=== PATIENT | female | born 1975 | race Caucasian/White ===

== ENCOUNTER → 2017-12-16 | Outpatient (CLI) | payer OTHER, BC ==
[~2017-12-16] MED LIST: CITA20 PO; DIPH50 PO; PRED5 PO
== END ==
LOC: LAB SHORT 07:44 → PLD 07:44
DX: D48.5 Neoplasm of uncertain behavior of skin (principal)
CPT/HCPCS: 88305

== ENCOUNTER → 2018-12-17 | Outpatient (CLI) | payer OTHER, BC | END | disposition home or self-care (01) | LOC: LAB SHORT 08:09 → OLS 08:09 | DX: D48.5 Neoplasm of uncertain behavior of skin (principal) | CPT/HCPCS: 88305 ==

== ENCOUNTER 2021-08-03 08:06 | Day surgery (SDC) | payer OTHER, BC ==
[2021-08-02 12:49] LABS: Anion Gap 5 mmol/L (6-16); Blood Urea Nitrogen 18 mg/dL (8-24); Bun/Creatinine Ratio 22.6 (12.0-20.0); CO2, Blood 28 mmol/L (21-32); Chloride, Blood 108 mmol/L (98-108); Glomerular Filtration Rate >60 (60-); Glucose, Blood 92 mg/dL (70-99); Potassium, Blood 4.4 mmol/L (3.5-5.5); Sodium, Blood 141 mmol/L (136-145)
[~2021-08-03] VITALS: Ht 167.6 cm; Wt 103.2 kg
[2021-08-03] MEDS ORDERED: METO25ER (08:53)
[2021-08-03] MEDS ORDERED: HYDCHL12.5 (08:54)
--- NOTE | 2021-08-03 10:26 | NUR ---
08/03/21 1026 Teresa Don FLUID DEFICIT OF <200 CC. DRS NOTIFIED.
--- NOTE | 2021-08-03 10:50 | NUR ---
08/03/21 1050 KIRIT GERMAIN PT IN CHAIR EATING COOKIES DRINKING WATER, DENIES ANY PAIN OR NAUSEA T
== END 2021-08-03 11:26 | disposition home or self-care (01) ==
LOC: ORSCSDS 08:06
PROVIDERS: Obstetrics & Gynecology
PROC: 0UDB8ZX Extraction of Endometrium, Via Natural or Artificial Opening Endoscopic, Diagnostic (ICD-10-PCS; principal; 2021-08-03 09:30)
DX: N85.00 Endometrial hyperplasia, unspecified (principal); N92.6 Irregular menstruation, unspecified; I10 Essential (primary) hypertension; Z87.891 Personal history of nicotine dependence; Z79.899 Other long term (current) drug therapy; E66.9 Obesity, unspecified; Z68.36 Body mass index [BMI] 36.0-36.9, adult
CPT/HCPCS: 36415; 80048; 88305; A9270; J1100; J2250; J2370; J2405; J2704; J3010; J7120